=== PATIENT | male | born 1985 | race Caucasian/White ===

== ENCOUNTER 2020-02-09 10:14 | Emergency (ER) | payer MEDICAID ==
[~2020-02-09] VITALS: Ht 182.9 cm; Wt 117.9 kg
[2020-02-09 10:36] VITALS: Ht 182.9 cm; Wt 117.9 kg
[2020-02-09 11:27] VITALS: BP 123/69
== END 2020-02-09 11:27 | disposition home or self-care (01) ==
LOC: ED 10:14
DX: R58 Hemorrhage, not elsewhere classified (principal); M79.652 Pain in left thigh; R22.41 Localized swelling, mass and lump, right lower limb